=== PATIENT | male | born 1965 | race Caucasian/White ===

== ENCOUNTER 2016-12-23 22:31 | Observation (INO) | payer OTHER ==
--- NOTE | ~2016-12-23 | CN ---
Consultation Report [facility] [address] [place]. [address] NAME: ILIANA WASSERMAN : 65 STATUS : ADM Ian PAT#: [id number] AGE: 51 ADM/REG DATE : 12/23/16 MR#: [id number] REPORT SERV DATE: 12/25/16 DICTATED BY: JAIRON ORTA DATE: 12/25/16 REPORT STATUS : Draft TRANSCRIBED BY: MODL DATE: 12/25/16 GI CONSULTATION DATE OF CONSULTATION: 12/25/2016 I am seeing this patient for Dr. 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 REASON FOR CONSULTATION: Elevated liver enzymes. HISTORY OF PRESENT ILLNESS: Mr. Wasserman is a very pleasant 51-year-old white male with a history of serving in the in [place], who presents with a five-to six- day history of right upper quadrant pain/discomfort, mild weakness, and jaundice/icterus. When he was evaluated at the ER in [facility], he had a CT scan performed on 12/22, which showed normal-appearing liver, no biliary dilatation, and no hepatic masses. He did have nonobstructive kidney stones. On admission here, he was found to have a bilirubin of 8.1, AST 176, ALT 431, and alkaline phosphatase 285. His lipase was 245. He is status post cholecystectomy. An abdominal ultrasound was subsequently performed yesterday, which showed a normal-appearing liver in size and echo texture. No focal mass was seen. There is note of mild intrahepatic biliary dilatation and mild common bile duct dilation at 10 mm without any stone or mass. He is status post cholecystectomy, however. His repeat liver enzymes have trended down to a bilirubin of 4.3, AST 135, ALT 341, alkaline phosphatase 228. His platelets are 145. INR is 1. Albumin is 3.1. Ferritin 208. He denies any alcohol or drug use. PAST MEDICAL HISTORY: Gastroesophageal reflux disease, hypothyroidism, rhinitis, and nephrolithiasis. PAST SURGICAL HISTORY: Cholecystectomy, lithotripsy for renal stone, tonsillectomy, and jaw surgery. SOCIAL HISTORY: No smoking, alcohol, or drug use as above, served in in [place]. MEDICATIONS: Reviewed. ALLERGIES: NO KNOWN DRUG ALLERGIES. FAMILY HISTORY: No known liver disease. PHYSICAL EXAMINATION: VITAL SIGNS: The patient is afebrile. His vital signs are stable. GENERAL: The patient is awake, alert, and oriented x3. Well developed, well nourished, in no acute distress. HEENT: Atraumatic, normocephalic. Some mild scleral icterus. Mucous membranes moist. CARDIAC: S1, S2. Consultation Report [place] [address] [place]. [address] NAME: ILIANA WASSERMAN : 65 STATUS : ADM Ian PAT#: [id number] AGE: 51 ADM/REG DATE : 12/23/16 MR#: [id number] REPORT SERV DATE: 12/25/16 DICTATED BY: JAIRON ORTA DATE: 12/25/16 REPORT STATUS : Draft TRANSCRIBED BY: NEFTALY DATE: 12/25/16 CHEST: Clear to auscultation bilaterally. ABDOMEN: Obese, soft, nontender, and nondistended. No hepatosplenomegaly felt. No fluid wave. LABORATORY DATA: Show WBC 4.8, hemoglobin 14.3, hematocrit 41.2, and platelets 145. INR is 1. Sodium 143, potassium 3.7, chloride 108, bicarb 26, BUN 8, creatinine 0.84, glucose 87. Albumin is 3.1, ferritin 208, TSH 5.7. Liver enzymes as stated above show bilirubin 4.3, AST 135, ALT 341, alkaline phosphatase 228. Abdominal ultrasound and CT scan as dictated above. IMPRESSION AND PLAN: Elevated liver enzymes of unclear etiology. Given the patient's travel history, will follow up with the viral panel which has already been ordered. Ferritin is normal. If further workup is negative, may consider checking ASAD, AMA, and ASMA. We will also check an MRCP as there is some mild intrahepatic biliary dilatation. After having cholecystectomy, it is not unusual to have some mild clinically insignificant common bile duct dilation up to 10 mm, but we will follow up with this MRI. Dr. Albright will resume care in the morning. FRANCESCA/NEFTALY Jairon Orta MD / [id number] CC: MD NITO Perez SUSAN
--- NOTE | ~2016-12-23 | DS ---
Discharge Summary [place] [id number] [facility] [place]. [address] NAME: ILIANA WASSERMAN : 65 STATUS : DIS Ian PAT#: [id number] AGE: 51 ADM/REG DATE : 12/23/16 MR#: [id number] REPORT SERV DATE: 12/27/16 DICTATED BY: DATE: REPORT STATUS : Draft TRANSCRIBED BY: MODL DATE: 12/26/16 ADMISSION DATE: 12/23/2016 DISCHARGE DATE: 12/26/2016 DISCHARGE DIAGNOSES: 1. Transaminitis. 2. Abdominal pain. 3. Jaundice. 4. Hypothyroidism. 5. Bloody stool. CONSULTATIONS: GI, Dr. Ama Chiu for Dr. Albright. PROCEDURES AND IMAGIN. 12/24/2016, complete abdominal survey by ultrasound showed:. a. Status post cholecystectomy. b. Upper normal to mildly enlarged CBD measuring 10 mm, uncertain clinical significance. No visible bile duct calculus or obstructing pancreatic head mass. May represent post cholecystectomy, biliary ectasia. c. Nonspecific heterogeneous echotexture to the liver. No discrete mass lesion noted. 2. 12/25/2016, MRI of the abdomen without contrast showed:. a. Unremarkable MRCP. No bile duct or pancreatic duct dilatation and no visible stricture or persistent filling defect to suggest problem. HOSPITAL COURSE: Please see admission H and P by Dr. Allan Flores on 12/23/2016. This is a 51-year-old white gentleman with a history of hypothyroidism, who presented to the ER with five- to six-day history of right-sided abdominal pain, associated with nausea, elevated liver enzymes, and worsening jaundice. During his stay, the patient has had elevated liver enzymes that have started to trend down. His alkaline phosphatase started out at 285, next day was 228/232. Total bilirubin was 8.1/4.3/3.1. ALT was 431/341/330. AST was 176/135/115. Upon presentation, the patient had fairly icteric sclera, which is slowly fading. The patient also had tympanic bowel sounds, which have faded to normal. The patient's TSH was elevated to 5.71. The patient states that he has not been compliant taking his levothyroxine regularly and has not taken it for about a week. The patient's urine drug screen was negative. His serum urine drug screen was less than 10. His lipase is 245. His urine showed moderate bilirubin, with 4.0 urobilinogen. GI was consulted. An ERCP was ordered. The patient has had dark brown urine that has gone through council green and now is yellow staging. Serum ammonia level is 21. Please see consultation by Dr. Marie Orta on 12/25/2016. The patient's ASAD titer was 1:80 and ASAD pattern was speckled. His hepatitis profile and HIV were nonreactive. The patient's abdominal pain has continued to minimize during his stay, and the patient is now able to transition to home. The patient did experience a stool with bright red blood, which was witnessed by the nurse. Discharge Summary [address] [place]. [address] NAME: ILIANA WASSERMAN : 65 STATUS : DIS Ian PAT#: [id number] AGE: 51 ADM/REG DATE : 12/23/16 MR#: [id number] REPORT SERV DATE: 12/27/16 DICTATED BY: DATE: REPORT STATUS : Draft TRANSCRIBED BY: MODL DATE: 12/26/16 This was not of a significant amount, but enough that the patient will need to follow up with GI. PHYSICAL EXAMINATION: VITAL SIGNS: Blood pressure is 140/79, O2 saturation is 94% on room air, temperature is 97.5, heart rate is 71, and respirations are 17. HEENT: Head is atraumatic, normocephalic. Slight icterus in the sclera, good dentition. Pupils are equal, round, and reactive to light and accommodation. NECK: No obvious lymphadenopathy or thyromegaly. Neck is supple. Neck veins are flat. CARDIAC: The patient is in regular rhythm. S1 and S2 with no obvious murmurs, rubs, or gallops. LUNGS: Lungs are clear to auscultation with normal respiratory effort. GI: Abdomen is soft and nontender with active bowel sounds in all four quadrants. Normal bowel habitus. No palpable organomegaly. EXTREMITIES: No significant edema, clubbing, or cyanosis. Dorsalis pedis and posterior tibial pulses are palpable bilaterally. MUSCULOSKELETAL: Moves all extremities x4. He is ambulatory without assistance and has no difficulties with balance. SKIN: Skin is warm and dry and intact with normal color and turgor. NEUROPSYCH: The patient is alert and oriented x4, pleasant, cooperative. Cranial nerves II through XII are grossly intact. Affect is bright. DISCHARGE MEDICATIONS: Vitamin D 1000 units daily, Synthroid 25 mcg daily, omeprazole 40 mg daily, Carafate 1 g a.c. and h.s. x14 days, and Zyrtec 10 mg p.r.n. allergies. ALLERGIES: THE PATIENT HAS NO KNOWN DRUG ALLERGIES. DISCHARGE INSTRUCTIONS: The patient is to follow up with his PCP in 7 to 10 days. The patient is also to follow up with Dr. Aj Albright in one month. Approximately, 25 minutes has been spent coordinating discharge care of this patient along with [id number] encounter and summarization of the discharge. SLC/MODL Bethany Marr NP / [id number] CC: MD NITO Perez SUSAN Richard Sadowitz, M.D.
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
[2016-12-23 18:39] LABS: BASOPHILS 0.4 %; BASOPHILS ABSOLUTE 0.03 10/3/uL (0.0-0.16); EOSINOPHILS 2.1 %; EOSINOPHILS ABSOLUTE 0.15 10/3/uL (0.0-0.53); ER CBC TAT 0 Hrs 14 Mins; HEMATOCRIT 46.4 % (40.0-51.0); HEMOGLOBIN 16.1 g/dL (13.6-17.8); IMMATURE GRANULOCYTES 0.1 %; IMMATURE GRANULOCYTES ABSOLUTE 0.01 10/3/uL (0.0-0.11); LYMPHOCYTES 15.8 %; LYMPHOCYTES ABSOLUTE 1.14 10/3/uL (0.67-4.30); MEAN CORPUS HGB CONC 34.7 g/dL (32.0-36.0); MEAN CORPUSCULAR HEMOGLOB 32.9 pg (26.0-34.0); MEAN CORPUSCULAR VOLUME 94.7 fL (80-100); MEAN PLATELET VOLUME 11.2 fL (9.2-13.0); MONOCYTES ABSOLUTE 0.58 10/3/uL (0.21-1.20); NEUTROPHILS 73.6 %; NEUTROPHILS ABSOLUTE 5.32 10/3/uL (2.02-8.40); PLATELET COUNT 159 10/3/uL (150-400); WHITE BLOOD CELLS 7.2 10/3/uL (4.5-10.5)
[2016-12-23 18:40] LABS: MANUAL DIFF NO %
[2016-12-23 18:47] LABS: ASCORBIC ACID (UR NOT ORDER) NEG (NEG); BILIRUBIN, URINE MODERATE (NEG); ER URINALYSIS TAT 0 Hrs 22 Mins; KETONE, URINE 20 MG/DL (NEG); LEUKOCYTE ESTERASE(NOT OR NEG (NEG); NITRITE (URINE) NEG (NEG); WBC (NOT ORDERED) (RFLEX) 1 (0-5)
[2016-12-23 18:57] LABS: A/G RATIO 0.9 (0.7-1.9); ALBUMIN 3.7 G/DL (3.5-5.0); ALKALINE PHOSPHATASE 285 U/L (45-117); BUN (BLOOD UREA NITROGEN) 10 MG/DL (6-23); CHLORIDE, SERUM 104 MMOL/L (96-112); CO2 (CARBON DIOXIDE) 27 MMOL/L (24-34); CREATININE 0.97 MG/DL (0.70-1.30); GFR AFRICAN AMERICAN 104 ML/MIN (>=60); GFR NON AFRICAN AMERICAN 90 ML/MIN (>=60); GLOBULIN 3.9 G/DL (2.5-4.1); GLUCOSE, SERUM 86 MG/DL (60-99); POTASSIUM, SERUM 4.3 MMOL/L (3.5-5.3); SGPT(ALT) 431 U/L (5-65); SODIUM, SERUM 141 MMOL/L (135-148); TOTAL BILIRUBIN 8.1 MG/DL (0-1.2); TOTAL PROTEIN 7.6 G/DL (6.0-8.5)
[2016-12-23 18:58] LABS: SGOT(AST) 176 U/L (5-40)
[2016-12-23 19:37] LABS: DIRECT BILIRUBIN 6.2 MG/DL (0.0-0.4); INDIRECT BILIRUBIN(NOT ORDER) 1.9 MG/DL (0.1-0.9)
[2016-12-23] MEDS ORDERED: VITAMIN D1000 UNI1 PO (22:55)
[2016-12-23] MEDS ORDERED: ZYRTEC ALLGY10 MG PO (22:55)
[2016-12-23] MEDS ORDERED: SYN.025B PO (22:55)
[2016-12-23] MEDS ORDERED: CARASPUDL PO (22:56)
[2016-12-23] MEDS ORDERED: PRILOSEC40 MG PO (22:56)
[2016-12-24 05:57] LABS: AMPHETAMINES (NOT ORD) NEG (NEG); BARBITURATES (NOT ORDERED NEG (NEG); BENZODIAZEPINES (NOT ORD) NEG (NEG); CANNABINOIDS (THC) NEG (NEG); COCAINE (NOT ORDERED) NEG (NEG); OPIATES NEG (NEG); PHENCYCLIDINE(PCP) NEG (NEG); TRICYCLICS NEG (NEG)
[2016-12-24 07:08] LABS: BASOPHILS 0.6 %; BASOPHILS ABSOLUTE 0.03 10/3/uL (0.0-0.16); EOSINOPHILS 6.1 %; HEMOGLOBIN 14.3 g/dL (13.6-17.8); IMMATURE GRANULOCYTES 0.2 %; IMMATURE GRANULOCYTES ABSOLUTE 0.01 10/3/uL (0.0-0.11); LYMPHOCYTES 19.5 %; LYMPHOCYTES ABSOLUTE 0.96 10/3/uL (0.67-4.30); MEAN CORPUS HGB CONC 34.8 g/dL (32.0-36.0); MEAN CORPUSCULAR HEMOGLOB 32.2 pg (26.0-34.0); MEAN CORPUSCULAR VOLUME 92.6 fL (80-100); MEAN PLATELET VOLUME 11.1 fL (9.2-13.0); MONOCYTES 9.1 %; MONOCYTES ABSOLUTE 0.45 10/3/uL (0.21-1.20); NEUTROPHILS 64.5 %; NEUTROPHILS ABSOLUTE 3.17 10/3/uL (2.02-8.40); PLATELET COUNT 138 10/3/uL (150-400); RBC DISTRIBUTION WIDTH 13.1 % (12.0-16.0); RED CELL COUNT 4.44 10/6/uL (4.7-6.1); WHITE BLOOD CELLS 4.9 10/3/uL (4.5-10.5)
[2016-12-24 07:10] LABS: HEMATOCRIT 41.1 % (40.0-51.0); MANUAL DIFF NO %
[2016-12-24 07:18] LABS: PROTIME (NOT ORD) 13.2 SEC (12.0-14.5)
[2016-12-24 07:33] LABS: A/G RATIO 0.9 (0.7-1.9); ALBUMIN 3.1 G/DL (3.5-5.0); BUN (BLOOD UREA NITROGEN) 9 MG/DL (6-23); CHLORIDE, SERUM 107 MMOL/L (96-112); CO2 (CARBON DIOXIDE) 25 MMOL/L (24-34); CREATININE 0.81 MG/DL (0.70-1.30); FREE T4 1.13 NG/DL (0.76-1.46); GFR AFRICAN AMERICAN 119 ML/MIN (>=60); GFR NON AFRICAN AMERICAN 103 ML/MIN (>=60); GLOBULIN 3.3 G/DL (2.5-4.1); GLUCOSE, SERUM 99 MG/DL (60-99); SGOT(AST) 154 U/L (5-40); SGPT(ALT) 368 U/L (5-65); SODIUM, SERUM 142 MMOL/L (135-148); TOTAL PROTEIN 6.4 G/DL (6.0-8.5)
[2016-12-24 07:35] LABS: ACETAMINOPHEN LEVEL (TYLENOL) < 2.0 MCG/ML (10.0-20.0); ALCOHOL < 10 MG/DL (0); ALKALINE PHOSPHATASE 238 U/L (45-117); POTASSIUM, SERUM 3.3 MMOL/L (3.5-5.3); TOTAL BILIRUBIN 7.3 MG/DL (0-1.2)
[2016-12-25 07:03] LABS: BASOPHILS 0.8 %; BASOPHILS ABSOLUTE 0.04 10/3/uL (0.0-0.16); EOSINOPHILS 7.2 %; EOSINOPHILS ABSOLUTE 0.35 10/3/uL (0.0-0.53); HEMATOCRIT 41.2 % (40.0-51.0); HEMOGLOBIN 14.3 g/dL (13.6-17.8); IMMATURE GRANULOCYTES 0.2 %; IMMATURE GRANULOCYTES ABSOLUTE 0.01 10/3/uL (0.0-0.11); LYMPHOCYTES 20.2 %; LYMPHOCYTES ABSOLUTE 0.98 10/3/uL (0.67-4.30); MEAN CORPUS HGB CONC 34.7 g/dL (32.0-36.0); MEAN CORPUSCULAR HEMOGLOB 32.3 pg (26.0-34.0); MONOCYTES 8.9 %; MONOCYTES ABSOLUTE 0.43 10/3/uL (0.21-1.20); NEUTROPHILS 62.7 %; NEUTROPHILS ABSOLUTE 3.03 10/3/uL (2.02-8.40); PLATELET COUNT 145 10/3/uL (150-400); RBC DISTRIBUTION WIDTH 13.1 % (12.0-16.0); RED CELL COUNT 4.43 10/6/uL (4.7-6.1); WHITE BLOOD CELLS 4.8 10/3/uL (4.5-10.5)
[2016-12-25 07:12] LABS: MANUAL DIFF NO %
[2016-12-25 07:24] LABS: ALBUMIN 3.1 G/DL (3.5-5.0); ALKALINE PHOSPHATASE 228 U/L (45-117); BUN (BLOOD UREA NITROGEN) 8 MG/DL (6-23); CALCIUM, SERUM 8.2 MG/DL (8.5-10.4); CHLORIDE, SERUM 108 MMOL/L (96-112); CO2 (CARBON DIOXIDE) 26 MMOL/L (24-34); CREATININE 0.84 MG/DL (0.70-1.30); FERRITIN 208 NG/ML (26-388); GFR AFRICAN AMERICAN 117 ML/MIN (>=60); GFR NON AFRICAN AMERICAN 101 ML/MIN (>=60); GLOBULIN 3.2 G/DL (2.5-4.1); GLUCOSE, SERUM 87 MG/DL (60-99); IRON BINDING CAPACITY 266 MCG/DL (250-450); IRON, SERUM 129 MCG/DL (35-150); POTASSIUM, SERUM 3.7 MMOL/L (3.5-5.3); SGOT(AST) 135 U/L (5-40); SGPT(ALT) 341 U/L (5-65); SODIUM, SERUM 143 MMOL/L (135-148); TOTAL BILIRUBIN 4.8 MG/DL (0-1.2); TOTAL PROTEIN 6.3 G/DL (6.0-8.5)
[2016-12-26 04:51] LABS: BASOPHILS 0.6 %; BASOPHILS ABSOLUTE 0.04 10/3/uL (0.0-0.16); EOSINOPHILS 6.1 %; EOSINOPHILS ABSOLUTE 0.38 10/3/uL (0.0-0.53); HEMATOCRIT 44.8 % (40.0-51.0); HEMOGLOBIN 15.3 g/dL (13.6-17.8); IMMATURE GRANULOCYTES 0.2 %; IMMATURE GRANULOCYTES ABSOLUTE 0.01 10/3/uL (0.0-0.11); LYMPHOCYTES 21.7 %; LYMPHOCYTES ABSOLUTE 1.35 10/3/uL (0.67-4.30); MEAN CORPUS HGB CONC 34.2 g/dL (32.0-36.0); MEAN CORPUSCULAR HEMOGLOB 32.4 pg (26.0-34.0); MEAN CORPUSCULAR VOLUME 94.9 fL (80-100); MONOCYTES 7.6 %; MONOCYTES ABSOLUTE 0.47 10/3/uL (0.21-1.20); NEUTROPHILS 63.8 %; NEUTROPHILS ABSOLUTE 3.96 10/3/uL (2.02-8.40); PLATELET COUNT 157 10/3/uL (150-400); RBC DISTRIBUTION WIDTH 12.8 % (12.0-16.0); RED CELL COUNT 4.72 10/6/uL (4.7-6.1); WHITE BLOOD CELLS 6.2 10/3/uL (4.5-10.5)
[2016-12-26 04:54] LABS: MANUAL DIFF NO %
[2016-12-26 05:09] LABS: A/G RATIO 0.9 (0.7-1.9); ALBUMIN 3.3 G/DL (3.5-5.0); ALKALINE PHOSPHATASE 232 U/L (45-117); BUN (BLOOD UREA NITROGEN) 10 MG/DL (6-23); CALCIUM, SERUM 8.9 MG/DL (8.5-10.4); CHLORIDE, SERUM 107 MMOL/L (96-112); CO2 (CARBON DIOXIDE) 25 MMOL/L (24-34); CREATININE 0.86 MG/DL (0.70-1.30); GFR AFRICAN AMERICAN 116 ML/MIN (>=60); GFR NON AFRICAN AMERICAN 100 ML/MIN (>=60); GLOBULIN 3.6 G/DL (2.5-4.1); GLUCOSE, SERUM 89 MG/DL (60-99); POTASSIUM, SERUM 3.8 MMOL/L (3.5-5.3); SGOT(AST) 115 U/L (5-40); SGPT(ALT) 330 U/L (5-65); SODIUM, SERUM 143 MMOL/L (135-148); TOTAL PROTEIN 6.9 G/DL (6.0-8.5)
[2016-12-26 05:13] LABS: TOTAL BILIRUBIN 3.1 MG/DL (0-1.2)
[2016-12-26 10:53] LABS: HEPATITIS B SURFACE ANTIGEN NON-REACTIVE (NON-REACT)
[2016-12-26 10:54] LABS: HEPATITIS C ANTIBODY NON-REACTIVE (NON-REACT)
[2016-12-26 10:56] LABS: HEPATITIS B CORE AB IGM NON-REACTIVE (NON-REAC)
[2016-12-26 11:18] LABS: HEP A ANTIBODY IGM NON-REACTIVE (NON-REACT); HIV COMBO NON-REACTIVE (NON REAC)
[2016-12-26 11:20] LABS: ANA PATTERN SPECKLED
== END 2016-12-26 16:52 | disposition home or self-care (01) ==
LOC: ER 22:31 → 5SO 23:42
PROVIDERS: Emergency Medicine; Hospitalist; Internal Medicine; Nurse Practitioner Family
DX: R74.0 Nonspecific elevation of levels of transaminase and lactic acid dehydrogenase [LDH] (principal); R10.9 Unspecified abdominal pain; R17 Unspecified jaundice; E03.9 Hypothyroidism, unspecified; K92.1 Melena; J30.9 Allergic rhinitis, unspecified; Z79.52 Long term (current) use of systemic steroids; Z79.899 Other long term (current) drug therapy; Z90.49 Acquired absence of other specified parts of digestive tract; Z90.89 Acquired absence of other organs; Z98.890 Other specified postprocedural states; Z82.49 Family history of ischemic heart disease and other diseases of the circulatory system; Z83.6 Family history of other diseases of the respiratory system; Z83.49 Family history of other endocrine, nutritional and metabolic diseases
CPT/HCPCS: 74181; 76700; 80053; 80074; 80305; 81001; 82140; 82248; 82728; 83520; 83540; 83550; 83615; 83690; 83735; 84439; 84443; 85025; 85610; 86039; 86255; 87389; 96372; 96374; 99285; A9270-GY; G0378; G0480